=== PATIENT | female | born 1945 | race Caucasian/White ===

== ENCOUNTER 2016-12-26 11:49 | Day surgery (SDC) | payer OTHER ==
[2016-12-26 12:34] VITALS: PULSE 90
[2016-12-26] MEDS ORDERED: LR 1,000 ML IV ONE (12:42)
--- NOTE | 2016-12-26 13:51 | PDGENHP ---
History & Physical Chief Complaint: subepithelial lesion History of Present Illness: 71 year old female presents for evaluation of a subepithelial lesion. Pertinent Past, Social, Family History: 71 year old female presents for evaluation of a subepithelial lesion in the gastric antrum. PMHx: DJD, OA, depression Relevant Physical Exam: HEENT: anicteric. CV: RRR +s1s2. Lungs: CTAB. Abd: soft, nt, + bs. No guarding or rebound Cardiorespiratory Assessment: ASA 2
[2016-12-26] MEDS ORDERED: INDOMETHACIN 50 MG SUPP PR PRN (13:52)
--- NOTE | 2016-12-26 13:52 | PDANEPAE ---
ANE History of Present Illness EGD/EUS ANE Past Medical History - Cardiovascular History Hx Hypertension: No Hx Arrhythmias: No Hx Chest Pain: No Hx Coronary Artery / Peripheral Vascular Disease: No Hx CHF / Valvular Disease: No Hx Palpitations: No - Pulmonary History Hx COPD: No Hx Asthma/Reactive Airway Disease: No Hx Recent Upper Respiratory Infection: No Hx Oxygen in Use at Home: No Hx Sleep Apnea: No Sleep Apnea Screening Result - Last Documented: Negative - Neurologic History Hx Cerebrovascular Accident: No Hx Seizures: No Hx Dementia: No - Endocrine History Hx Diabetes: No - Renal History Hx Renal Disorders: No - Liver History Hx Hepatic Disorders: No - Neurological & Psychiatric Hx Hx Neurological and Psychiatric Disorders: Yes Neurological / Psychiatric History Comment: DEPRESSION - Cancer History Hx Cancer: No - Congenital Disorder History Hx Congenital Disorders: No - GI History Hx Gastrointestinal Disorders: Yes Gastrointestinal History Comment: REFLUX, GERD DISTANT HX OF SPASTIC COLLITIS - Other Health History Other Health History: NONE - Chronic Pain History Chronic Pain: Yes (BILAT SHOULDER AND BACK) - Surgical History Prior Surgeries: NONE ANE Review of Systems Review of Systems: - Exercise capacity METS (RN): 5 METS ANE Patient History - Allergies Allergies/Adverse Reactions: Sulfa (Sulfonamide Antibiotics) Allergy (Verified 03/18/16 17:37) - Home Medications Home medications: home medication list seen and reviewed Home Medications: Nadia Allergy 03/18/16 [Last Taken Unknown] Effexor 03/18/16 [Last Taken Unknown] Cymbalta 12/15/16 [Last Taken Unknown] - NPO status NPO Status: no food or drink >8 hours NPO Since - Liquids (Date): 12/26/16 NPO Since - Liquids (Time): 08:00 NPO Since - Solids (Date): 12/25/16 NPO Since - Solids (Time): 20:00 - Anes Hx Anes Hx: no prior problems - Smoking Hx Smoking Status: Former smoker - Family Anes Hx Family Hx Anesthesia Complications: NONE ANE Labs/Vital Signs - Vital Signs Blood Pressure: 145/99 Heart Rate: 90 Respiratory Rate: 16 O2 Sat (%): 96 Height: 170.18 cm Weight: 63.503 kg ANE Physical Exam - Airway Neck exam: FROM Mallampati Score: Class 2 Mouth exam: normal dental/mouth exam - Pulmonary Pulmonary: no respiratory distress - Cardiovascular Cardiovascular: regular rate and rhythym - ASA Status ASA Status: II ANE Anesthesia Plan Anesthesia Plan: GA with mask (Propofol. R/B/A explained.)
[2016-12-26] MEDS ORDERED: fentaNYL 100 MCG/2 ML INJ ONE (13:54)
[2016-12-26] MEDS ORDERED: PROPOFOL/EMULSION 500 MG/50 ML BOTTLE IV ONE (13:54)
[2016-12-26] MEDS ORDERED: LIDOCAINE 2% 5 ML SDV ONE (13:55)
[2016-12-26] MEDS ORDERED: NS 500 ML IV SCH (14:00)
[2016-12-26] MEDS ORDERED: PROMETHAZINE HCL 25 MG/ML INJ IVP PRN (14:16)
[2016-12-26] MEDS ORDERED: LABETALOL HCL 50 MG/10 ML SYR IVP PRN (14:16)
[2016-12-26] MEDS ORDERED: ONDANSETRON 4 MG/2 ML VIAL IVP PRN (14:16)
[2016-12-26] MEDS ORDERED: LR 500 ML IV PRN (14:16)
[2016-12-26] MEDS ORDERED: ACETAMINOPHEN 500 MG TAB PO PRN (14:16)
[2016-12-26] MEDS ORDERED: DEXAMETHASONE 4 MG/ML VIAL IVP PRN (14:16)
[2016-12-26] MEDS ORDERED: NALOXONE HCL 0.4 MG/ML INJ IVP PRN (14:16)
[2016-12-26] MEDS ORDERED: fentaNYL 100 MCG/2 ML INJ IVP PRN (14:16)
[2016-12-26] MEDS ORDERED: ALBUTEROL 3 ML DEYVIAL IH PRN (14:16)
--- NOTE | 2016-12-26 14:52 | GIREPORT ---
[facility] Surgical Services - Endoscopy Department Patient Name: Lila Luke Procedure Date: 12/26/2016 1:42 PM Patient Type: Outpatient Attending MD/ ER Physician: Isma Kim MD Procedure: Upper EUS Indications: Gastric deformity on endoscopy/Subepithelial tumor versus extrinsic compression, Epigastric abdominal pain Patient Profile: 71 year old female presents for evaluation of a deformity/subepithelial lesion in the prepyloric area as well as epigastric abdominal pain. Providers: Isma Kim MD Medicines: Monitored Anesthesia Care Complications: No immediate complications. Estimated blood loss: Minimal. Description of Procedure: After obtaining informed consent, the endoscope was passed under direct vision. Throughout the procedure, the patient's blood pressure, pulse, and oxygen saturations were monitored continuous ly. The was introduced through the mouth, and advanced to the second part of duodenum. The esophagus , stomach, and duodenum were visualized endosonographically. The Endoscope was introduced through the mouth, and advanced to the second part of duodenum. The upper EUS was accomplished without difficulty. The patient tolerated the procedure well. The Endosonoscope was introduced through t he mouth, and advanced to the second part of duodenum. Findings: Endoscopic Finding : The examined esophagus was normal. A medium-sized hiatal hernia was present. Patchy mildly erythematous mucosa was found in the gastric body and in the gastric antrum. Biops ies were taken with a cold forceps for histology. A single 3 mm sessile polyp was found in the duodenal bulb. Biopsies were taken with a cold for eps for histology. Endosonographic Finding : Diffuse wall thickening was visualized endosonographically in the antrum of the stomach. The gas tric wall measured up to 6 mm in thickness. There was a 5 layer wall pattern, however. No obvious mas s lesion noted. Pancreatic parenchymal abnormalities were noted in the entire pancreas. These consisted of hyperechoic foci. The pancreatic duct had a prominently branched endosonographic appearance and had hyperechoic wa lls in the entire pancreas. No lymphadenopathy seen. Estimated Blood Loss: Estimated blood loss was minimal. Post Op Diagnosis: - Normal esophagus. - Medium-sized hiatal hernia. - Erythematous mucosa in the gastric body and antrum. Biopsied. - A single duodenal polyp. Biopsied. - Wall thickening was seen in the antrum of the stomach. - Pancreatic parenchymal abnormalities consisting of hyperechoic foci w ere noted in the entire pancreas. - The pancreatic duct had a prominently branched endosonographic appear ance and had hyperechoic lopez in the entire pancreas. Recommendation: - Discharge patient to home (with escort). - Advance diet as tolerated. - Await path results. - Consider CT scan in 3 -4 months versus repeat EGD/EUS in 3 months. - Thank you for allowing me to participate in the care of your patient. Attending Participation: I personally performed the entire procedure. Isma Kim MD Isma Kim MD 12/26/2016 2:51:31 PM Number of Addenda: 0 Note Initiated On: 12/26/2016 1:42 PM [email or web address]
[2016-12-26 15:10] VITALS: TEMP 97.7
[2016-12-26 16:12] VITALS: RESP 16
[2016-12-26 16:32] VITALS: BP 145/81; O2SAT 93
== END 2016-12-26 16:30 | disposition home or self-care (01) ==
LOC: FSGY 11:49
PROVIDERS: ATTEND Internal Medicine Gastroenterology
PROC: 0DB68ZX Excision of Stomach, Via Natural or Artificial Opening Endoscopic, Diagnostic (ICD-10-PCS; principal; 2016-12-26 14:00)
PROC: 0DB78ZX Excision of Stomach, Pylorus, Via Natural or Artificial Opening Endoscopic, Diagnostic (ICD-10-PCS; principal; 2016-12-26 14:00)
PROC: 0DB98ZX Excision of Duodenum, Via Natural or Artificial Opening Endoscopic, Diagnostic (ICD-10-PCS; principal; 2016-12-26 14:00)
DX: K63.5 Polyp of colon (principal); K29.70 Gastritis, unspecified, without bleeding; K31.89 Other diseases of stomach and duodenum; K44.9 Diaphragmatic hernia without obstruction or gangrene
CPT/HCPCS: J2704; J3010

== ENCOUNTER → 2017-06-22 | Outpatient (CLI) | payer OTHER | LOC: CIMAGING 13:18 | PROVIDERS: ATTEND Podiatrist | DX: M19.072 Primary osteoarthritis, left ankle and foot (principal); M20.12 Hallux valgus (acquired), left foot | CPT/HCPCS: 73630-PO ==